=== PATIENT | female | born 1985 | race Caucasian/White ===

== ENCOUNTER 2018-02-12 17:28 | Emergency (ER) | payer MEDICAID ==
[2018-02-12] MEDS: PROCHLORPERAZINE 10 MG TAB PO (19:50)
[2018-02-12] MEDS: SUMATRIPTAN 6 MG/0.5 ML INJ SC (19:53)
== END 2018-02-12 21:40 | disposition home or self-care (01) ==
LOC: FTE 21:40
DX: R51 Headache (principal)
CPT/HCPCS: 96372; 99284-25; J3030

== ENCOUNTER 2018-07-02 08:20 | Emergency (ER) | payer MEDICAID ==
[2018-07-02] MEDS: METHYLPREDNISOLONE 125 MG INJ IM (09:30)
[2018-07-02] MEDS: KETOROLAC 60 MG INJ IM (09:30)
== END 2018-07-02 09:47 | disposition home or self-care (01) ==
LOC: FTE 08:20
DX: M54.42 Lumbago with sciatica, left side (principal)
CPT/HCPCS: 81025; 96372; 99284-25

== ENCOUNTER 2018-07-12 07:07 | Emergency (ER) | payer MEDICAID ==
[2018-07-12] MEDS: DIPHENHYDRAMINE 50 MG INJ IV (07:36)
[2018-07-12] MEDS: ONDANSETRON 4 MG INJ IV (07:36)
[2018-07-12] MEDS: SOD CHLORIDE 0.9% 1,000 ML IV (07:37)
[2018-07-12] MEDS: KETOROLAC 30 MG INJ IV (07:37)
[2018-07-12 07:49] LABS: ADD UMIC NO; UR ASCORBIC ACID NEGATIVE (NEGATIVE); UR BILIRUBIN (Dip) NEGATIVE (NEGATIVE); UR BLOOD (Dip) NEGATIVE (NEGATIVE); UR CLARITY SLIGHTLY CLOUDY (CLEAR); UR COLOR YELLOW (YELLOW); UR GLUCOSE (Dip) NEGATIVE (NEGATIVE); UR KETONES (Dip) NEGATIVE (NEGATIVE); UR LEUKOCYTE ESTERASE (Dip) NEGATIVE Leu/ul (NEGATIVE); UR MUCUS FEW /HPF (NONE SEEN); UR NITRITE (Dip) NEGATIVE (NEGATIVE); UR RBC 1 /HPF (0-5); UR SPECIFIC GRAVITY (Dip) 1.021 (1.003-1.030); UR TOTAL PROTEIN (Dip) NEGATIVE (NEGATIVE); UR UROBILINOGEN (Dip) NEGATIVE (NEGATIVE); UR WBC 0 /HPF (0-5)
== END 2018-07-12 10:12 | disposition home or self-care (01) ==
LOC: FTE 07:07
DX: R51 Headache (principal)
CPT/HCPCS: 81001; 81003; 81025; 96361; 96374; 96375; 99284-25